=== PATIENT | female | born 1965 | race Caucasian/White ===

== ENCOUNTER 2016-11-19 18:05 | Emergency (ER) | payer OTHER ==
[2016-11-19] MEDS ORDERED: Ondansetron HCl/PF 4 MG/2 ML Vial ONE (18:26)
[2016-11-19 18:27] LABS: #Basophils 0.1 thou/uL (0.0-0.2); #Eosinphils 0.1 thou/uL (0.0-0.7); #Lymphocytes 2.6 thou/uL (1.20-3.40); #Monocytes 0.5 thou/uL (0.11-0.59); #Neutrophils 6.2 thou/uL (1.40-6.50); %Basophils 1.1 % (0.0-1.0); %Eosinophils 1.2 % (0.0-10.0); %Lymphocytes 26.9 % (21.0-51.0); %Monocytes 5.3 % (0.0-10.0); %Neutrophils 65.5 % (42.0-75.0); Hemoglobin 13.4 g/dL (12.0-16.0); Mean Corpuscular HGB CONC 34.9 g/dL (32.0-36.0); Mean Corpuscular Hemoglobin 31.7 pg (27.0-31.0); Mean Corpuscular Volume 90.8 fl (81.0-99.0); Mean Platelet Volume 6.1 fL (7.4-10.4); Platelet Count 321 thou/uL (130-400); RBC Distribution Width 11.5 % (11.5-14.5); Red Blood Cell (RBC) Count 4.22 mill/uL (4.20-5.40); White Blood Cell (WBC) Count 9.5 thou/uL (4.8-10.8)
[2016-11-19 18:45] LABS: ALT (SGPT) 12 U/L (8-55); AST (SGOT) 10 U/L (5-34); Albumin 3.9 g/dL (3.5-5.0); Alkaline Phosphatase 84 U/L (40-150); Anion Gap 15 mmol/L (10-20); BUN (Urea Nitrogen) 11 mg/dL (7.0-18.7); Bilirubin, Total 0.8 mg/dL (0.2-1.2); Calc. Creatinine Clearance 0 mL/min (70-130); Calcium 9.5 mg/dL (7.8-10.44); Carbon Dioxide 22 mmol/L (22-29); Chloride 107 mmol/L (98-107); Estimated GFR-MDRD 90; Globulin 3.5 g/dL (2.4-3.5); Glucose 132 mg/dL (70-105); Potassium 3.6 mmol/L (3.5-5.1); Protein, Total 7.4 g/dL (6.0-8.3); Sodium 140 mmol/L (136-145)
[2016-11-19 18:47] LABS: CKMB 0.6 ng/mL (0-6.6); Troponin I Less than 0.010 ng/mL (< 0.028)
[2016-11-19] MEDS ORDERED: Prochlorperazine 10 MG/2 ML VIAL ONE (19:21)
[2016-11-19] MEDS ORDERED: Amoxicillin/Potassium Clav 875 MG TAB ONE (19:24)
== END 2016-11-19 19:34 | disposition home or self-care (01) ==
LOC: BURERS 18:05
DX: J02.9 Acute pharyngitis, unspecified (principal); R42 Dizziness and giddiness; J45.909 Unspecified asthma, uncomplicated; F41.9 Anxiety disorder, unspecified
CPT/HCPCS: 80053; 82553; 84484; 85025; 87081; 87430; 93005; 96361; 96374; 96375; J0780; J2405

== ENCOUNTER 2017-04-16 09:08 | Emergency (ER) | payer OTHER ==
[~2017-04-16 09:08] MED LIST: Iopamidol 370 76% 100 ML VIAL ONE
[2017-04-16 09:57] LABS: #Eosinphils 0.1 thou/uL (0.0-0.7); #Lymphocytes 0.5 thou/uL (1.20-3.40); #Monocytes 0.2 thou/uL (0.11-0.59); #Neutrophils 4.8 thou/uL (1.40-6.50); %Basophils 0.7 % (0.0-1.0); %Eosinophils 2.6 % (0.0-10.0); %Lymphocytes 8.1 % (21.0-51.0); %Monocytes 2.7 % (0.0-10.0); %Neutrophils 85.9 % (42.0-75.0); Hemoglobin 11.7 g/dL (12.0-16.0); Mean Corpuscular Hemoglobin 30.2 pg (27.0-31.0); Mean Corpuscular Volume 94.3 fl (81.0-99.0); Mean Platelet Volume 5.4 fL (7.4-10.4); Platelet Count 245 thou/uL (130-400); RBC Distribution Width 12.4 % (11.5-14.5); Red Blood Cell (RBC) Count 3.86 mill/uL (4.20-5.40); White Blood Cell (WBC) Count 5.5 thou/uL (4.8-10.8)
[2017-04-16 10:10] LABS: Anion Gap 14 mmol/L (10-20); BUN (Urea Nitrogen) 10 mg/dL (9.8-20.1); Calc. Creatinine Clearance 0 mL/min (70-130); Calcium 8.6 mg/dL (7.8-10.44); Carbon Dioxide 24 mmol/L (22-29); Chloride 104 mmol/L (98-107); Estimated GFR-MDRD Greater than 90; Glucose 91 mg/dL (70-105); Potassium 3.7 mmol/L (3.5-5.1); Sodium 138 mmol/L (136-145)
[2017-04-16] MEDS ORDERED: Sodium Chloride 0.9% 100 ML ONE (10:13)
[2017-04-16] MEDS ORDERED: cefTRIAXone\\ROCEPHIN 2 GM VIAL ONE (10:13)
[2017-04-16] MEDS ORDERED: Acetaminophen 500 MG TAB ONE (11:03)
--- NOTE | 2017-04-16 14:14 | RAD ---
CHEST TWO VIEWS: 04/16/2017 COMPARISON: 01/21/2014 FINDINGS: There is an infiltrate in the left lower lobe, as well as an effusion. The lungs are otherwise clear . The heart is normal in size. There is no vascular congestion. IMPRESSION: Left lower lobe infiltrate and effusion. In the appropriate context, pneumonia is possible. See CT report to follow. POS: HOME
--- NOTE | 2017-04-16 14:48 | CT ---
PRELIMINARY REPORT/[facility]/EMERGENCY AFTER HOURS PROCEDURE: EXAM: CT Angiography Chest With Intravenous Contrast CLINICAL HISTORY: 52 years old, female; Pain and signs and symptoms; Shortness of breath; Other: Lt. Shoulder pain; Pat ient HX: Dyspnea/lt, shoulder pain/recent rt. Shoulder SX TECHNIQUE: Axial computed tomographic angiography images of the chest with intravenous contrast using pulmonary embolism protocol. All CT scans at this facility use one or more dose reduction techniques, viz.: aut omated exposure control; ma/kV adjustment per patient size (including targeted exams where dose is ma tched to indication; i.e. head); or iterative reconstruction technique. Coronal and sagittal reformatted images were created and reviewed. CONTRAST: 100 mL of isovue administered intravenously. COMPARISON: No relevant prior studies available. FINDINGS: Pulmonary arteries: No pulmonary embolism is identified. Aorta: No thoracic aortic aneurysm or dissection. Lungs: Ill-defined opacity in the dependent area of the left lower lobe is suggestive of atelectasis. Very subtle groundglass opacity medially in the right middle lobe and small patchy subtle groundglass opacities scattered in the right lower lobe may be inflammatory. Pleural space: There is a trace amount of right pleural effusion. No pneumothorax. Heart: No cardiomegaly. No significant pericardial effusion. Mediastinum: There is a moderate-sized hiatal hernia. The distal esophagus is mildly distended with s mall air-fluid level with no abnormal wall thickening. Surgical clips present in the gastroesophageal junction and along the greater curvature in the distal gastric body. Bones/joints: No acute fracture. No dislocation. Soft tissues: There is edema of the subcutaneous fat and small amount of air in the right proximal sh oulder and some air in the right upper anterior chest wall suggestive of early postsurgical changes. Lymph nodes: No enlarged lymph nodes. IMPRESSION: No pulmonary embolism. Dependent atelectasis in the left lung base. Very subtle small patchy groundglass opacities in the right middle lobe and right lower lobe may be i nflammatory. Trace amount of right pleural effusion. Recent postsurgical changes in the right shoulder. Thank you for allowing us to participate in the care of your patient. Dictated and Authenticated by: Darya Ware MD 04/16/2017 10:47 AM Central Time ([place] & [place]) FINAL REPORT CT ANGIO OF THE CHEST WITH CONTRAST: Date: 04-16-[address] of the chest was done for evaluation of shortness of breath. Axial slices were acquired aft er a bolus of IV contrast. Oblique and coronal reconstructions were later obtained. FINDINGS: The timing of the bolus is slightly less than optimal. Small peripheral emboli would be missed by thi s study. No gross pulmonary emboli were seen in the central to medium sized branches. There is no sig n of pericardial fluid. There is no sign of aortic dissection or aneurysm. A hiatal hernia is present with an air fluid level within it. Surgical clips are seen around the GE junction from a prior opera tive procedure in the region. The mediastinum is otherwise unremarkable. Infiltrative changes are seen in the left lower lobe posteriorly. On the chest x-ray it looked like t here may be a pleural effusion, but there really is not much of one. The infiltrative changes could e ither be atelectasis or an actual pneumonia. There is a trace of pleural fluid in the right hemithora x. A few patchy ground glass opacities on the right in the right upper and right middle lobe may be i nfectious in nature. The lungs were otherwise clear. The visible portions of the upper abdomen were u nremarkable. IMPRESSION: 1. Low to medium sensitivity study showing no evidence of pulmonary embolism. 2. Left lower lobe streaking. Atelectasis versus pneumonia. 3. A few minor patchy ground glass opacities in the right upper and right middle lobe. Atelectasis or infection are also in the differential. 4. Large hiatal hernia near the GE junction. Report is agreement with the preliminary reading by HESH[facility]. POS: HOME
== END 2017-04-16 11:48 | disposition home or self-care (01) ==
LOC: BURERS 09:08
DX: J98.11 Atelectasis (principal); J90 Pleural effusion, not elsewhere classified; J22 Unspecified acute lower respiratory infection; J45.909 Unspecified asthma, uncomplicated; F41.9 Anxiety disorder, unspecified; Z79.891 Long term (current) use of opiate analgesic; Z79.899 Other long term (current) drug therapy
CPT/HCPCS: 71046; 71275; 80048; 85025; 94760; 96365; A4216; J0696; J7050